=== PATIENT | male | born 1960 | race African-American/Black ===

== ENCOUNTER 2023-05-23 19:20 | Inpatient (IN) | payer MEDICARE, MEDICAID ==
[2023-05-23 22:00] VITALS: PULSE 79; RESP 19; O2SAT 95
[2023-05-23] MEDS ORDERED: NITROGLYCERIN 0.4 MG SL TAB SL PRN (22:15)
[2023-05-23] MEDS ORDERED: MORPHINE SULFATE INJ 2 MG/ml SYRG IV PRN (22:15)
[2023-05-23] MEDS ORDERED: HYDROmorphone HCL 2 MG/ML VL/or syr IV PRN ×2 (22:15)
[2023-05-23 23:40] LABS: Basophils # (auto) 0 10 ^3/uL (0-0.2); Basophils % (auto) 0.4 % (0.0-2.0); Eosinophils # (auto) 0 10 ^3/uL (0-0.8); Hematocrit 40.2 % (41.0-53.0); Hemoglobin 13.2 g/dL (13.5-17.5); Lymphocytes # (auto) 0.9 10 ^3/uL (0.4-5.4); Lymphocytes % (auto) 11.4 % (10.0-50.0); Mean Corpuscular Hemoglobin 29.3 pg (28.0-32.0); Mean Corpuscular Volume 88.9 fL (80.0-100.0); Monocytes # (auto) 0.1 10 ^3/uL (0-1.3); Monocytes % (auto) 0.8 % (0.0-12.0); Neutrophils # (auto) 7.2 10 ^3/uL (1.6-8.6); Neutrophils % (auto) 87.4 % (37.0-80.0); Red Blood Cells 4.52 10^6/uL (4.5-5.90); Red Cell Distribution Width 13.8 % (11.8-14.3); White Blood Cell 8.3 10^3/uL (4.4-10.8)
[2023-05-23 23:54] LABS: Alanine Aminotransferase 18 U/L (7-40); Albumin 4.3 g/dL (3.2-4.8); Alkaline Phosphatase 70 U/L (46-116); Anion Gap 8 (5-15); Aspartate Aminotransferase 14 U/L (13-40); BUN/Creatinine Ratio 11.7 (10.0-20.0); Bilirubin, Total 0.2 mg/dL (0.2-1.0); Blood Urea Nitrogen 19 mg/dL (9-23); Calcium 9.1 mg/dL (8.7-10.4); Carbon Dioxide 21 mmol/L (20-30); Chloride 107 mmol/L (98-107); Glucose 296 mg/dL (74-106); Magnesium 2.1 mg/dL (1.6-2.6); Phosphorus 2.2 mg/dL (2.4-5.1); Potassium 4.4 mmol/L (3.5-5.1); Sodium 136 mmol/L (136-145); Total Protein 7.6 g/dL (5.7-8.2); Uric Acid 8.8 mg/dL (3.7-9.2)
[2023-05-24] VITALS (7 sets, daily range): BP systolic 123–161; BP diastolic 59–87; PULSE 64–89; RESP 16–19; TEMP 97.6–98.7; O2SAT 95–100
[2023-05-24] MEDS ORDERED: CARV25TA55 PO (00:01)
[2023-05-24] MEDS ORDERED: REPA2TAB8 PO (00:01)
[2023-05-24] MEDS ORDERED: HYDR-4227 PO (00:01)
[2023-05-24] MEDS ORDERED: TORS20TA20 PO (00:01)
[2023-05-24] MEDS ORDERED: GLIP5TAB12 PO (00:01)
[2023-05-24] MEDS ORDERED: CARV6.2551 PO (00:01)
[2023-05-24] MEDS ORDERED: RIVA10TA PO (00:01)
[2023-05-24] MEDS ORDERED: [UNRECOGNIZED DRUG - CODE] PO (00:01)
[2023-05-24] MEDS ORDERED: MULT-1018 PO (00:01)
[2023-05-24] MEDS ORDERED: DOXY100C4 PO (00:01)
[2023-05-24] MEDS ORDERED: PAR20T PO (00:01)
[2023-05-24] MEDS ORDERED: ISOS1TAB28 PO (00:01)
[2023-05-24] MEDS ORDERED: SACU1TAB4 PO (00:01)
[2023-05-24] MEDS ORDERED: HYDROmorphone HCL 2 MG/ML VL/or syr IV PRN ×3 (00:15→20:45)
[2023-05-24] MEDS: SOD CHL 0.45% 1,000 ML IV SCH ×2 (02:09→20:45)
[2023-05-24 05:55] LABS: Basophils # (auto) 0 10 ^3/uL (0-0.2); Basophils % (auto) 0.1 % (0.0-2.0); Eosinophils # (auto) 0 10 ^3/uL (0-0.8); Hematocrit 38.8 % (41.0-53.0); Hemoglobin 12.7 g/dL (13.5-17.5); Lymphocytes # (auto) 1.1 10 ^3/uL (0.4-5.4); Lymphocytes % (auto) 16.1 % (10.0-50.0); Mean Corpuscular Hemoglobin 29.2 pg (28.0-32.0); Mean Corpuscular Hgb Conc. 32.8 g/dL (32.0-36.0); Mean Corpuscular Volume 89.1 fL (80.0-100.0); Monocytes # (auto) 0.1 10 ^3/uL (0-1.3); Monocytes % (auto) 1.2 % (0.0-12.0); Neutrophils # (auto) 5.6 10 ^3/uL (1.6-8.6); Neutrophils % (auto) 82.6 % (37.0-80.0); Red Blood Cells 4.36 10^6/uL (4.5-5.90); Red Cell Distribution Width 13.7 % (11.8-14.3); White Blood Cell 6.8 10^3/uL (4.4-10.8)
[2023-05-24] MEDS: methylPREDNISolone SOD SUCC 40 MG/ML VL IV SCH ×2 (06:04→22:00)
[2023-05-24 06:05] LABS: Alanine Aminotransferase 22 U/L (7-40); Albumin 4.3 g/dL (3.2-4.8); Alkaline Phosphatase 71 U/L (46-116); Anion Gap 9 (5-15); Aspartate Aminotransferase 18 U/L (13-40); BUN/Creatinine Ratio 17.6 (10.0-20.0); Blood Urea Nitrogen 26 mg/dL (9-23); Calcium 9.3 mg/dL (8.5-10.1); Carbon Dioxide 21 mmol/L (20-30); Chloride 107 mmol/L (98-107); Cholesterol 152 mg/dL (< 200); Glucose 282 mg/dL (74-106); LDL Cholesterol 110 mg/dL (< 100); Potassium 4.6 mmol/L (3.5-5.1); Sodium 137 mmol/L (136-145); Triglycerides 112 mg/dL (< 150)
[2023-05-24] MEDS: hydrALAZINE HCL 25 MG TAB PO SCH (06:05)
[2023-05-24 06:06] LABS: Bilirubin, Total 0.3 mg/dL (0.2-1.0); HDL Cholesterol 31 mg/dL (40-59); Total Protein 7.3 g/dL (5.7-8.2)
[2023-05-24] MEDS: INSULIN LISPRO (HUMAN) 100 UNITS/ML ML SC SCH ×2 (06:29→22:09)
[2023-05-24] MEDS: CARVEDILOL 12.5 MG TAB PO SCH (10:00)
[2023-05-24] MEDS: SACUBITRIL-VALSARTAN 24mg/26mg TAB PO SCH (10:00)
[2023-05-24] MEDS: ASPirin-EC 81 mg tab PO SCH (10:00)
[2023-05-25] VITALS (7 sets, daily range): BP systolic 124–155; BP diastolic 72–93; PULSE 67–87; RESP 14–22; TEMP 97.7–99; O2SAT 96–100
[2023-05-25] MEDS: KETOROLAC TROMETH 30 MG/ML 1ML VIAL IV PRN (05:28)
[2023-05-25 06:23] LABS: Alanine Aminotransferase 16 U/L (7-40); Alkaline Phosphatase 63 U/L (46-116); Anion Gap 8 (5-15); BUN/Creatinine Ratio 25.7 (10.0-20.0); Carbon Dioxide 20 mmol/L (20-30); Chloride 110 mmol/L (98-107); Glucose 233 mg/dL (74-106); Potassium 4.1 mmol/L (3.5-5.1); Sodium 138 mmol/L (136-145)
[2023-05-25 06:24] LABS: Albumin 4.1 g/dL (3.2-4.8); Aspartate Aminotransferase 9 U/L (13-40)
[2023-05-25 06:25] LABS: Bilirubin, Total 0.3 mg/dL (0.2-1.0); Total Protein 7.2 g/dL (5.7-8.2)
[2023-05-25 06:54] LABS: Blood Urea Nitrogen 37 mg/dL (9-23)
[2023-05-25] MEDS: methylPREDNISolone SOD SUCC 40 MG/ML VL IV SCH (21:33)
[2023-05-26 05:00] VITALS: BP 115/70; PULSE 72; RESP 22; TEMP 98.1; O2SAT 97
[2023-05-26 08:00] VITALS: PULSE 67
[2023-05-26 09:10] VITALS: BP 140/79; PULSE 73; RESP 19; TEMP 98; O2SAT 96
[2023-05-26] MEDS ORDERED: PRED1PAK9 PO (11:12)
[2023-05-26] MEDS ORDERED: METF750T54 PO (11:14)
[2023-05-26 13:03] VITALS: BP 140/79; PULSE 65; TEMP 36.7
[2023-05-26 13:05] VITALS: BP 158/87; PULSE 67; RESP 19; TEMP 98.3; O2SAT 98
[2023-05-27] MEDS ORDERED: methylPREDNISolone SOD SUCC 40 MG/ML VL IV SCH (10:00)
== END 2023-05-26 14:26 | disposition home or self-care (01) | DRG 554 ==
LOC: WEST WING 20:55 → UNDOADMIN 20:55 → WEST WING 22:39 → TELE-WESTW 05-25 01:21
PROVIDERS: ADMIT Specialist; ATTEND Specialist
DX: M10.9 Gout, unspecified (principal); I13.0 Hypertensive heart and chronic kidney disease with heart failure and stage 1 through stage 4 chronic kidney disease, or unspecified chronic kidney disease; N17.9 Acute kidney failure, unspecified; I42.0 Dilated cardiomyopathy; E66.2 Morbid (severe) obesity with alveolar hypoventilation; I50.22 Chronic systolic (congestive) heart failure; N18.9 Chronic kidney disease, unspecified; E83.39 Other disorders of phosphorus metabolism; E88.819 Insulin resistance, unspecified; E86.9 Volume depletion, unspecified; W18.39XA Other fall on same level, initial encounter; E11.65 Type 2 diabetes mellitus with hyperglycemia; I25.10 Atherosclerotic heart disease of native coronary artery without angina pectoris; K21.9 Gastro-esophageal reflux disease without esophagitis; F32.A Depression, unspecified; E11.22 Type 2 diabetes mellitus with diabetic chronic kidney disease; Z87.891 Personal history of nicotine dependence; Z79.899 Other long term (current) drug therapy; Z91.119 Patient's noncompliance with dietary regimen due to unspecified reason; Z91.148 Patient's other noncompliance with medication regimen for other reason; Y93.89 Activity, other specified; Y92.89 Other specified places as the place of occurrence of the external cause; Y99.8 Other external cause status; Z87.442 Personal history of urinary calculi; Z98.1 Arthrodesis status; I27.81 Cor pulmonale (chronic); Z68.36 Body mass index [BMI] 36.0-36.9, adult
CPT/HCPCS: 36415; 71046; 73130; 80053; 80061; 82962; 83036; 83735; 83880; 84100; 84550; 85025; 86141; G0378; J1815; J1885